=== PATIENT | female | born 1995 | race Caucasian/White ===

== ENCOUNTER 2020-01-06 21:36 | Emergency (ER) | payer BC ==
[~2020-01-06] VITALS: Ht 162.6 cm; Wt 113.4 kg
--- NOTE | 2020-01-06 21:40 | NUR ---
Dr. Wasserman at bedside for MSE.
[2020-01-06] MEDS ORDERED: FUROSEMIDE 20 MG/2 ML VIAL ONE (21:44)
[2020-01-06] MEDS ORDERED: AZITHROMYCIN 500MG/ D5W 250ML IVPB **ER PYXIS ONLY IV ONE (21:44)
[2020-01-06] MEDS ORDERED: CEFTRIAXONE /D5W 50ML IVPB **ER PYXIS IV ONE (21:45)
[2020-01-06] MEDS ORDERED: PANTOPRAZOLE SODIUM 40 MG VIAL ONE (22:29)
[2020-01-06] MEDS ORDERED: MORPHINE SULFATE 4 MG/1 ML DISP.SYRIN ONE (22:29)
[2020-01-06] MEDS ORDERED: ONDANSETRON 4 MG/2 ML VIAL ONE (22:29)
[2020-01-06] MEDS ORDERED: ONDANSETRON 4 MG/2 ML VIAL IV ONE (22:30)
[2020-01-06] MEDS ORDERED: IV NORMAL SALINE 1000 ML BAG IV ONE (22:30)
[2020-01-06] MEDS ORDERED: MORPHINE SULFATE 2 MG/1 ML DISP.SYRIN IV ONE (22:30)
[2020-01-06] MEDS ORDERED: PANTOPRAZOLE SODIUM 40 MG VIAL IV ONE (22:30)
[2020-01-06 22:39] LABS: BASOPHILS % (AUTO) 0.3 % (0.0-2.0); EOSINOPHILS % (AUTO) 0.1 % (0.0-7.0); HEMATOCRIT 41.5 % (31.2-41.9); HEMOGLOBIN 13.8 g/dL (10.9-14.3); LYMPHOCYTES # (AUTO) 1.6 K/uL (20.0-40.0); LYMPHOCYTES % (AUTO) 14.6 % (20.5-51.5); MEAN CORPUSCULAR HGB CONC 33 g/dL (32.3-35.6); MEAN CORPUSCULAR VOLUME 87.2 fL (75.5-95.3); MONOCYTES # (AUTO) 0.6 K/uL (2.0-10.0); MONOCYTES % (AUTO) 5.7 % (0.0-11.0); NEUTROPHILS # (AUTO) 8.9 K/uL (1.8-8.9); NEUTROPHILS % (AUTO) 79.3 % (38.5-71.5); PLATELET COUNT (AUTO) 254 K/uL (179-408); RED BLOOD CELL COUNT(AUTO) 4.76 MIL/uL (3.63-4.92); WHITE BLOOD COUNT (AUTO) 11.3 K/uL (3.8-11.8)
[2020-01-06 22:54] LABS: ALANINE AMINOTRANSFERASE 62 U/L (14-59); ALKALINE PHOSPHATASE 62 U/L (50-136); ASPARTATE AMINOTRANSFERASE 54 U/L (15-37); BILIRUBIN,DIRECT 0.1 mg/dL (0.0-0.2); BILIRUBIN,TOTAL 0.6 mg/dL (0.2-1.0); CARBON DIOXIDE 18 mmol/L (21-32); CHLORIDE 102 mmol/L (98-107); CREATININE 0.7 mg/dL (0.6-1.3); GLUCOSE 97 mg/dL (74-106); LIPASE 150 U/L (73-393); POTASSIUM 3.9 mmol/L (3.5-5.1); TOTAL PROTEIN, SERUM 8.3 g/dL (6.4-8.2); UREA NITROGEN, BLOOD 5 mg/dL (7-18)
--- NOTE | 2020-01-06 22:56 | NUR ---
Pt states nausea is gone, still feels burning pain in stomach.
[2020-01-06] MEDS ORDERED: MAG HYDROX/AL HYDROX/SIMETH 30 ML LIQUID UDC PO ONE (23:00)
[2020-01-06] MEDS ORDERED: LIDOCAINE VISCUS 2% 15 ML UDC MM ONE (23:00)
[2020-01-06] MEDS ORDERED: LIDOCAINE VISCUS 2% 15 ML UDC ONE (23:02)
[2020-01-06] MEDS ORDERED: MAG HYDROX/AL HYDROX/SIMETH 30 ML LIQUID UDC ONE (23:03)
--- NOTE | 2020-01-07 00:20 | NUR ---
Patient discharged to home in stable conditon. Written and verbal after care instructions given. Patient verbalizes understanding of instructions. Pt out of ER via wheelchair, VSS, no acute signs of distress, all belongings taken, IV site discontinued, accompanied by parents, to be driven home via private vehicle by family.
[2020-01-07 00:22] VITALS: BP 119/79
== END 2020-01-07 00:22 | disposition home or self-care (01) ==
LOC: ER 21:39
DX: K29.70 Gastritis, unspecified, without bleeding (principal); Z88.2 Allergy status to sulfonamides; Z79.899 Other long term (current) drug therapy
CPT/HCPCS: 36415; 80048; 80076; 83690; 84702; 85025; 96361; 96374; 96375; 99284; C9113; J0456; J0696; J1940; J2270; J2405; A4663; J7030